=== PATIENT | female | born 1965 | race Caucasian/White ===

== ENCOUNTER 2018-02-02 20:38 | Emergency (ER) | payer OTHER ==
--- NOTE | 2018-02-02 21:27 | EDPHY ---
General Time Seen by Provider: 02/02/18 21:16 Narrative: CHIEF COMPLAINT: Anxiety, possible flu HISTORY OF PRESENT ILLNESS: Patient presents with complaints of "I feel like I might be getting the flu, and I'm anxious." She reports symptoms started abruptly approximately 6 hr ago. She was watching a movie when this started. She felt shaky, lightheaded and anxious. This is similar to previous episodes of anxiety that she has had the past. She also feels achy and as though she may be getting the flu. She denies any chest pain at any time. No vertiginous complaints. No shortness of breath, cough, wheezing. No sore throat. No joint pain but does have some soreness of the shoulders. She has no neck pain or stiffness, headache, urinary complaints or abdominal pain. She has a history of anxiety in the past with no formal ongoing treatment. Her primary care physician as a naturopathic physician who treated her with herbal medications. She did not feel as though she was going to lose consciousness during this. No other associated complaints or modifying factors. REVIEW OF SYSTEMS: Ten systems reviewed and are negative unless otherwise noted in the HPI PCP: Dr. Banks, [facility] SPECIALISTS: Acupuncture wrist PAST MEDICAL HISTORY: SIBO, anxiety PAST SURGICAL HISTORY: No surgical history SOCIAL HISTORY: Nonsmoker. No drug or alcohol use. Lives here independently with her spouse FAMILY HISTORY: Noncontributory EXAMINATION General Appearance: Alert, no distress, anxious and fidgeting Head: normocephalic, atraumatic Eyes: Pupils equal and round, no conjunctival pallor or injection ENT, Mouth: Mucous membranes moist Neck: Normal inspection, supple, non-tender Respiratory: Lungs are clear to auscultation Cardiovascular: Regular rate and rhythm. No murmur. Gastrointestinal: Abdomen is soft and nontender Back: non-tender, no bony abnormalities Neurological: GCS 15. A&O, nonfocal, normal gait. Strength symmetric. Skin: Warm and dry, no rash Extremities: Nontender, no pedal edema Psychiatric: Anxious mood and affect. Fidgeting DIFFERENTIAL DIAGNOSES: Including but not limited to anxiety, influenza, viral illness, dehydration, hypoglycemia, near-syncope MDM: 9:20 p.m. Multiple vague complaints including anxiety, body aches, headed. She does not describe any dizziness, chest pain, shortness of breath per she is concerned that she may have influenza and is asking to be test for this. She appears more anxious to me and I do feel she would benefit from IV medication for this. She is asking to not have a benzodiazepine at this point. She has agreed to IV Benadryl. I will attempt this for some re-evaluate. Baseline laboratory studies pending. 10:00 p.m. CBC is well within normal limits. Chemistry is pending. Flu test is pending. I have re-evaluated the patient and she feels significantly better. 10:20 p.m. Chemistry is within normal limits. Flu pending. 10:30 p.m. Influenza test is negative. She continues to feel well and is comfortable with being discharged home. We discussed hydroxyzine for anxiolysis. We also discussed acupuncture and her naturopathic physician. We discussed ED precautions for worsening symptoms, any chest pain, near-syncope or syncope. We discussed [id number] medications. She and her significant other are comfortable this plan and she is discharged home stable condition. SUPERVISION: This patient was independently evaluated without direct involvement of or examination by the attending physician. - History Smoking Status: Former smoker - Objective Vital Signs: Initial Vital Signs Temperature (C) 98.1 F 02/02/18 20:51 Heart Rate 73 02/02/18 20:51 Respiratory Rate 20 02/02/18 20:51 Blood Pressure 141/79 H 02/02/18 20:51 O2 Sat (%) 99 02/02/18 20:51 O2 Delivery Mode Room Air Allergies/Adverse Reactions: gluten Allergy (Verified 02/02/18 20:51) Home Medications: Medication Instructions Recorded hydrOXYzine HCL [Hydroxyzine HCl] 50 mg PO Q6-8PRN PRN #12 tablet 02/02/18 Laboratory Results: Laboratory Results 02/02/18 21:30 02/02/18 21:30 02/02/18 02/02/18 02/02/18 21:30 21:30 21:30 WBC 6.10 10^3/uL 10^3/uL (3.80-9.50) RBC 4.26 10^6/uL 10^6/uL (4.18-5.33) Hgb 13.4 g/dL g/dL (12.6-16.3) Hct 39.6 % % (38.0-47.0) MCV 93.0 fL fL (81.5-99.8) MCH 31.5 pg pg (27.9-34.1) MCHC 33.8 g/dL g/dL (32.4-36.7) RDW 13.9 % % (11.5-15.2) Plt Count 271 10^3/uL 10^3/uL (150-400) MPV 10.3 fL fL (8.7-11.7) Neut % (Auto) 65.4 % % (39.3-74.2) Lymph % (Auto) 23.9 % % (15.0-45.0) Teller % (Auto) 7.4 % % (4.5-13.0) Eos % (Auto) 2.6 % % (0.6-7.6) Baso % (Auto) 0.5 % % (0.3-1.7) Nucleat RBC Rel Count 0.0 % % (0.0-0.2) Absolute Neuts (auto) 3.99 10^3/uL 10^3/uL (1.70-6.50) Absolute Lymphs (auto) 1.46 10^3/uL 10^3/uL (1.00-3.00) Absolute Monos (auto) 0.45 10^3/uL 10^3/uL (0.30-0.80) Absolute Eos (auto) 0.16 10^3/uL 10^3/uL (0.03-0.40) Absolute Basos (auto) 0.03 10^3/uL 10^3/uL (0.02-0.10) Absolute Nucleated RBC 0.00 10^3/uL 10^3/uL (0-0.01) Immature Gran % 0.2 % % (0.0-1.1) Immature Gran # 0.01 10^3/uL 10^3/uL (0.00-0.10) Sodium 138 mEq/L mEq/L (135-145) Potassium 4.4 mEq/L mEq/L (3.5-5.2) Chloride 101 mEq/L mEq/L (97-110) Carbon Dioxide 25 mEq/l mEq/l (22-31) Anion Gap 12 mEq/L mEq/L (8-16) BUN 16 mg/dL mg/dL (7-23) Creatinine 0.8 mg/dL mg/dL (0.6-1.0) Estimated GFR > 60 Glucose 98 mg/dL mg/dL (70-100) Calcium 9.4 mg/dL mg/dL (8.5-10.4) Nasal Influenza A PCR NEGATIVE FOR FLU A (NEGATIVE) Nasal Influenza B PCR NEGATIVE FOR FLU B (NEGATIVE) Medications Given: Discontinued Medications Diphenhydramine HCl (Benadryl Injection) 25 mg IVP EDNOW ONE Stop: 02/02/18 21:28 Last Admin: 02/02/18 21:38 Dose: 25 mg Sodium Chloride (Ns) 1,000 mls @ 0 mls/hr IV ONCE ONE; Wide Open PRN Reason: Protocol Stop: 02/02/18 21:41 Last Admin: 02/02/18 21:43 Dose: 1,000 mls Departure - Departure Disposition: Home, Routine, Self-Care Clinical Impression: Anxiety reaction Condition: Good Instructions: Anxiety (ED), Anxiolysis in Adults (ED) Additional Instructions: 1. Hydroxyzine as prescribed as needed for anxiety 2. Contact established primary care physician for outpatient follow-up 3. ED precautions for return of symptoms, chest pain, shortness of breath, near loss of consciousness, or loss of consciousness Referrals: Sonia Banks PA [Primary Care Provider] - As per Instructions Prescriptions: hydrOXYzine HCL [Hydroxyzine HCl] 50 mg PO Q6-8PRN PRN #12 tablet PRN Reason: Itching
[2018-02-02] MEDS ORDERED: NS 1,000 ML IV ONE (21:40)
[2018-02-02 21:46] LABS: PLATELET COUNT 271 10^3/uL (150-400)
[2018-02-02 22:38] VITALS: BP 132/66; PULSE 66; RESP 16; TEMP 97.9; O2SAT 96
== END 2018-02-02 22:38 | disposition home or self-care (01) ==
DX: F41.1 Generalized anxiety disorder (principal); E86.9 Volume depletion, unspecified; Z87.891 Personal history of nicotine dependence
CPT/HCPCS: 96374; J1200